=== PATIENT | male | born 1990 | race Caucasian/White ===

== ENCOUNTER 2020-01-12 12:25 | Day surgery (SDC) | payer OTHER ==
[2020-01-12] MEDS ORDERED: MORPHINE 4 MG/ML SYR ONE (13:23)
[2020-01-12] MEDS ORDERED: ONDANSETRON 4 MG/2 ML VIAL ONE ×2 (13:24→17:48)
[2020-01-12] MEDS ORDERED: CEFAZOLIN/SWI 1gm 1 GM/10 ML SYR ONE (13:24)
[2020-01-12] MEDS ORDERED: NA CHLORIDE 0.9% 1,000 ML ONE (13:24)
--- NOTE | 2020-01-12 13:34 | RAD REPORT ---
EXAM DESCRIPTION: RAD - Tib Fib Left - 01/12/2020 1:27 pm CLINICAL HISTORY: laceration Pain and swelling COMPARISON: No comparisons FINDINGS: Soft tissue laceration is seen medial calf. No radiopaque foreign body evident. No fractur e or dislocation.
--- NOTE | 2020-01-12 13:41 | EDPHYS ---
Physician Documentation [facility] Name: Charles Arambula Age: 29 yrs Sex: Male : 1990 Arrival Date: 01/12/2020 Time: 12:26 Bed 19 Private MD: ED Physician Chandler Owen HPI: 01/11 13:41 This 29 yrs old Male presents to ER via Wheelchair with complaints of snw Laceration To Leg. 13:30 The patient has a laceration related to: setting up table and middle support piece snw stabbed pt's leg occurred outdoors. The laceration(s) is(are) located on the medial aspect of left calf. Onset: The symptoms/episode began/occurred suddenly, just prior to arrival. Associated signs and symptoms: The patient has no apparent associated signs or symptoms. The patient has not experienced similar symptoms in the past. The patient has not recently seen a physician. tetanus up to date. Historical: - Allergies: 12:56 No Known Allergies; iw - Home Meds: 12:56 montelukast 10 mg oral tab 1 tab once daily [Active]; Albuterol Inhl [Active]; Zyrtec iw 10 mg Oral chew 1 tab once daily [Active]; - PMHx: 12:56 Asthma; iw ROS: 13:29 Constitutional: Negative for fever, chills, and weight loss, Eyes: Negative for injury, snw pain, redness, and discharge, ENT: Negative for injury, pain, and discharge, Neck: Negative for injury, pain, and swelling, Cardiovascular: Negative for chest pain, palpitations, and edema, Respiratory: Negative for shortness of breath, cough, wheezing, and pleuritic chest pain, Abdomen/GI: Negative for abdominal pain, nausea, vomiting, diarrhea, and constipation, Back: Negative for injury and pain, : Negative for injury, bleeding, discharge, and swelling, MS/Extremity: Negative for injury and deformity, Skin: Negative for injury, rash, and discoloration, + large laceration to left medial calf Neuro: Negative for headache, weakness, numbness, tingling, and seizure, Psych: Negative for depression, anxiety, suicide ideation, homicidal ideation, and hallucinations. Exam: 13:28 Constitutional: This is a well developed, well nourished patient who is awake, alert, snw and in no acute distress. Head/Face: Normocephalic, atraumatic. Eyes: Pupils equal round and reactive to light, extra-ocular motions intact. Lids and lashes normal. Conjunctiva and sclera are non-icteric and not injected. Cornea within normal limits. Periorbital areas with no swelling, redness, or edema. ENT: Nares patent. No nasal discharge, no septal abnormalities noted. Tympanic membranes are normal and external auditory canals are clear. Oropharynx with no redness, swelling, or masses, exudates, or evidence of obstruction, uvula midline. Mucous membranes moist. Neck: Trachea midline, no thyromegaly or masses palpated, and no cervical lymphadenopathy. Supple, full range of motion without nuchal rigidity, or vertebral point tenderness. No Meningismus. Chest/axilla: Normal chest wall appearance and motion. Nontender with no deformity. No lesions are appreciated. Cardiovascular: Regular rate and rhythm with a normal S1 and S2. No gallops, murmurs, or rubs. Normal PMI, no JVD. No pulse deficits. Respiratory: Lungs have equal breath sounds bilaterally, clear to auscultation and percussion. No rales, rhonchi or wheezes noted. No increased work of breathing, no retractions or nasal flaring. Abdomen/GI: Soft, non-tender, with normal bowel sounds. No distension or tympany. No guarding or rebound. No evidence of tenderness throughout. Back: No spinal tenderness. No costovertebral tenderness. Full range of motion. Neuro: Awake and alert, GCS 15, oriented to person, place, time, and situation. Cranial nerves II-XII grossly intact. Motor strength 5/5 in all extremities. Sensory grossly intact. Cerebellar exam normal. Normal gait. Psych: Awake, alert, with orientation to person, place and time. Behavior, mood, and affect are within normal limits. 13:28 Skin: Appearance: normal except for affected area, injury, laceration(s), the wound is approximately 6 cm(s), with a depth of 4 cm(s), of the medial aspect of left calf, muscle belly extrudes from laceration, + subcutaneous fat cut away with the skin, pain upon dorsiflexion. 14:04 ECG was reviewed by the Attending Physician. [facility] Vital Signs: 12:52 BP 122 / 84; Pulse 75; Resp 16; Temp 98.0; Pulse Ox 100% on R/A; Weight 77.11 kg; iw Height 6 ft. (182.88 cm); Pain 10/10; 13:33 BP 139 / 73; Pulse 78; Resp 17; Pulse Ox 100% ; rb1 15:16 BP 135 / 71; Pulse 68; Resp 16; Pulse Ox 100% ; rb1 12:52 Body Mass Index 23.06 (77.11 kg, 182.88 cm) iw Laceration: 13:32 Wound Repair of 6cm ( 2.4in ) muscle penetrating laceration to medial aspect of left snw calf. Irregularly shaped.. Hemostasis noted.. Distal neuro/vascular/tendon intact. Anesthesia: Wound infiltrated with 5 mls of 1% lidocaine, Local anesthetic administered with 5 mls of 0.5% marcaine. Wound prep: Wound explored minimally. Dressed with moist to dry with Kerlix. Patient tolerated well. MDM: 12:51 Patient medically screened. [facility] 13:26 Data reviewed: vital signs, nurses notes. Counseling: I had a detailed discussion with snw the patient and/or guardian regarding: the historical points, exam findings, and any diagnostic results supporting the discharge/admit diagnosis, radiology results. Physician consultation: Mehdi Nuñez MD was called at 13:15, was contacted at 13:15, regarding consult, patient's condition, Dr. Owen discussed with Dr. Nuñez, decision to take pt to OR for wash out and closure at 2:30, and will see patient shortly. 01/11 13:37 Order name: CBC with Diff [facility] 01/11 13:37 Order name: Comprehensive Metabolic Panel [facility] 01/11 12:57 Order name: XRAY Tib Fib LEFT; Complete Time: 13:36 01/11 13:37 Order name: CBC with Automated Diff; Complete Time: 15:09 [facility] 01/11 13:37 Order name: Comprehensive Metabolic Panel; Complete Time: 14:17 [facility] 01/11 14:03 Order name: CBC Smear Scan; Complete Time: 15:09 [facility] 01/11 13:37 Order name: Chest Single View XRAY; Complete Time: 14:17 [facility] 01/11 12:57 Order name: IV Start; Complete Time: 12:59 01/11 13:18 Order name: NPO; Complete Time: 13:33 [facility] 01/11 13:26 Order name: Dressing - Wound; Complete Time: 13:33 snw 01/11 13:37 Order name: EKG; Complete Time: 13:38 elsa 01/11 13:37 Order name: EKG - Nurse/Tech; Complete Time: 14:03 elsa EC:04 Rate is 70 beats/min. Rhythm is regular. QRS [place] is Normal. [place] interval is normal. QRS elsa interval is normal. QT interval is normal. No Q waves. T waves are Normal. No ST changes noted. Clinical impression: Normal ECG and No evidence of ischemia. Interpreted by me. Reviewed by me. Administered Medications: 13:00 Drug: Marcaine (0.5 %) 5 ml Volume: 10 ml; Route: Infiltration; rb1 13:17 Drug: NS 0.9% 1000 ml Route: IV; Rate: 1000 ml; Site: right antecubital; iw 13:18 Drug: morphine 4 mg Route: IVP; Site: right antecubital; iw 14:00 Follow up: Response: No adverse reaction; Pain is decreased iw 13:18 Drug: Zofran (Ondansetron) 4 mg Route: IVP; Site: right antecubital; iw 14:00 Follow up: Response: No adverse reaction iw 13:18 Not Given (UTD): Tetanus-Diphtheria Toxoid Adult 0.5 ml IM once snw 13:20 Drug: Ancef 1 grams Route: IVPB; Site: right antecubital; iw 13:33 Not Given (Duplicate Order): NS 0.9% 1000 ml IV at 1 bolus Per protocol; 1000 mL bolus rb1 15:10 Drug: NS 0.9% 1000 ml Route: IV; Rate: 125 ml/hr; Site: right antecubital; rb1 15:40 Follow up: IV Status: Infusion continued upon admission iw 15:10 Drug: morphine 2 mg Route: IVP; Site: right antecubital; rb1 15:30 Follow up: Response: No adverse reaction iw Disposition: 14:05 Co-signature as Attending Physician, Chandler Owen MD I agree with the assessment and elsa plan of care. Disposition: 01/12/20 13:41 Hospitalization ordered by Mehdi Nuñez for Observation. Preliminary diagnosis is Laceration without foreign body of lower leg. - Bed requested for Operating Room. - Status is Observation. eb - Condition is Stable. - Problem is new. - Symptoms are unchanged. Signatures: Dispatcher [employer] EDChandler Fitzpatrick MD MD cha Waters, Shelly, TUGBOAT DISPATCHER-C TUGBOAT DISPATCHER-Csnw Trena Oleary, JULY RN Asha Suarez, Kelsea Vallejo RN Corrections: (The following items were deleted from the chart) 13:30 13:28 Skin: Appearance: normal except for affected area, injury, laceration(s), the snw wound is approximately 6 cm(s), with a depth of 4 cm(s), of the medial aspect of left calf, muscle belly extrudes from laceration, + subcutaneous fat cut away with the skin, snw 15:30 13:41 Hospitalization Ordered by Mehdi Nuñez MD for Observation. Preliminary diagnosis eb is Laceration without foreign body of lower leg. Bed requested for Operating Room. Status is Observation. Condition is Stable. Problem is new. Symptoms are unchanged. snw
--- NOTE | 2020-01-12 13:41 | ER ---
Nurse's Notes [facility] Name: Charles Arambula Age: 29 yrs Sex: Male : 1990 Arrival Date: 01/12/2020 Time: 12:26 Bed 19 Private MD: Diagnosis: Laceration without foreign body of lower leg Presentation: 01/11 12:52 Chief complaint: Patient states: was putting together a metal table, then end of the iw table fell as they were lifting it, tore into his left calf, large avulsion/laceration noted, not bleeding at this time. Coronavirus screen: At this time, the client does not indicate any symptoms associated with coronavirus-19. Ebola Screen: Patient negative for fever greater than or equal to 101.5 degrees Fahrenheit, and additional compatible Ebola Virus Disease symptoms Patient denies exposure to infectious person. Patient denies travel to an Ebola-affected area in the 21 days before illness onset. No symptoms or risks identified at this time. Complicating Factors: There are no complicating factors for this patient. Initial Sepsis Screen: Does the patient meet any 2 criteria? No. Patient's initial sepsis screen is negative. Does the patient have a suspected source of infection? No. Patient's initial sepsis screen is negative. Risk Assessment: Do you want to hurt yourself or someone else? Patient reports no desire to harm self or others. Onset of symptoms was January 12, 2020. 12:52 Method Of Arrival: Wheelchair iw 12:52 Acuity: KIRSTEN 3 iw Historical: - Allergies: 12:56 No Known Allergies; iw - Home Meds: 12:56 montelukast 10 mg oral tab 1 tab once daily [Active]; Albuterol Inhl [Active]; Zyrtec iw 10 mg Oral chew 1 tab once daily [Active]; - PMHx: 12:56 Asthma; iw Screenin:40 Abuse screen: Denies threats or abuse. Nutritional screening: No deficits noted. rb1 Tuberculosis screening: No symptoms or risk factors identified. Fall Risk None identified. Assessment: 12:40 General: Appears in no apparent distress. Behavior is calm, cooperative. Pain: rb1 Complains of pain in medial aspect of left calf. Neuro: Level of Consciousness is awake, alert, obeys commands, Oriented to person, place, time, situation. Cardiovascular: Capillary refill < 3 seconds Patient's skin is warm and dry. Respiratory: Airway is patent Respiratory effort is even, unlabored, Respiratory pattern is regular, symmetrical. Musculoskeletal: Range of motion: intact in all extremities. Injury Description: Laceration sustained to medial aspect of left calf is contaminated, is bleeding a small amount. 13:38 Reassessment: Patient appears in no apparent distress at this time. Patient and/or rb1 family updated on plan of care and expected duration. Pain level reassessed. Patient is alert, oriented x 3, equal unlabored respirations, skin warm/dry/pink. 14:22 Reassessment: Patient appears in no apparent distress at this time. No changes from rb1 previously documented assessment. 15:00 Reassessment: Patient appears in no apparent distress at this time. Patient and/or rb1 family updated on plan of care and expected duration. Pain level reassessed. Patient is alert, oriented x 3, equal unlabored respirations, skin warm/dry/pink. Vital Signs: 12:52 BP 122 / 84; Pulse 75; Resp 16; Temp 98.0; Pulse Ox 100% on R/A; Weight 77.11 kg; iw Height 6 ft. (182.88 cm); Pain 10/10; 13:33 BP 139 / 73; Pulse 78; Resp 17; Pulse Ox 100% ; rb1 15:16 BP 135 / 71; Pulse 68; Resp 16; Pulse Ox 100% ; rb1 12:52 Body Mass Index 23.06 (77.11 kg, 182.88 cm) iw ED Course: 12:26 Patient arrived in ED. ds1 12:40 Patient has correct armband on for positive identification. Bed in low position. Call rb1 light in reach. Side rails up X 1. Pulse ox on. NIBP on. 12:51 Chandler Owen MD is Attending Physician. elsa 12:54 Triage completed. iw 12:54 Arm band placed on. iw 12:58 Inserted saline lock: 20 gauge in right antecubital area, using aseptic technique. iw 13:23 Trena Oleary, JULY is Primary Nurse. iw 13:27 XRAY Tib Fib LEFT In Process Unspecified. EDMS 13:35 Ewa Rosado FNP-C is PHCP. snw 13:40 Mehdi Nuñez MD is Hospitalizing Provider. snw 14:00 Chest Single View XRAY In Process Unspecified. EDMS Administered Medications: 13:00 Drug: Marcaine (0.5 %) 5 ml Volume: 10 ml; Route: Infiltration; rb1 13:17 Drug: NS 0.9% 1000 ml Route: IV; Rate: 1000 ml; Site: right antecubital; iw 13:18 Drug: morphine 4 mg Route: IVP; Site: right antecubital; iw 14:00 Follow up: Response: No adverse reaction; Pain is decreased iw 13:18 Drug: Zofran (Ondansetron) 4 mg Route: IVP; Site: right antecubital; iw 14:00 Follow up: Response: No adverse reaction iw 13:18 Not Given (UTD): Tetanus-Diphtheria Toxoid Adult 0.5 ml IM once snw 13:20 Drug: Ancef 1 grams Route: IVPB; Site: right antecubital; iw 13:33 Not Given (Duplicate Order): NS 0.9% 1000 ml IV at 1 bolus Per protocol; 1000 mL bolus rb1 15:10 Drug: NS 0.9% 1000 ml Route: IV; Rate: 125 ml/hr; Site: right antecubital; rb1 15:40 Follow up: IV Status: Infusion continued upon admission iw 15:10 Drug: morphine 2 mg Route: IVP; Site: right antecubital; rb1 15:30 Follow up: Response: No adverse reaction iw Outcome: 13:41 Decision to Hospitalize by Provider. snw 15:30 Patient left the ED. eb Signatures: Dispatcher [employer] EDMS Chandler Owen MD MD cha Waters, Shelly, BASIC COMBATANT SWIMMER-C BASIC COMBATANT SWIMMER-Shelley Winters ds1 Trena Oleary, JULY RN iw Asha Reyna, JULY RN rb1 Kelsea Oconnell eb
[2020-01-12 13:58] LABS: Absolute Lymphocytes (CBC) 0.7 K/uL (0.7-4.9); Basophils % 0.2 % (0-1.3); Hematocrit 41.4 % (39.6-49.0); Lymphocytes % 8.2 % (15.3-44.8); MPV 9.1 fL (7.6-11.3)
--- NOTE | 2020-01-12 14:12 | RAD REPORT ---
EXAM DESCRIPTION: RAD - Chest Single View - 01/12/2020 2:00 pm CLINICAL HISTORY: pre op Chest pain. COMPARISON: No comparisons FINDINGS: Portable technique limits examination quality. The lungs are grossly clear. The heart is normal in size. No displaced fractures. IMPRESSION: No acute intrathoracic process suspected.
[2020-01-12 14:15] LABS: ALT/SGPT 28 U/L (12-78); AST/SGOT 16 U/L (15-37); Albumin 4.4 g/dL (3.4-5.0); Alkaline Phosphatase 63 U/L (45-117); BUN Blood Urea Nitrogen 17 mg/dL (7-18); Bicarbonate 28 mmol/L (21-32); Bilirubin Total 0.6 mg/dL (0.2-1.0); Glucose Level 99 mg/dL (74-106); Potassium 4.1 mmol/L (3.5-5.1); Protein, Total 7.5 g/dL (6.4-8.2); Sodium Level 142 mmol/L (136-145)
[2020-01-12 15:03] LABS: Platelet Estimate ADEQ
[2020-01-12 15:04] LABS: Blood Morphology Comment NOT SEEN (NOT SEEN)
[2020-01-12] MEDS ORDERED: MORPHINE 2 MG/ML SYR ONE (15:14)
[2020-01-12] MEDS ORDERED: SUCCINYLCHOLINE 20 MG/ML (10 ML) IV ONE (15:51)
[2020-01-12] MEDS ORDERED: FENTANYL CITR 100 MCG/2 ML ONE ×2 (15:53→16:20)
[2020-01-12] MEDS ORDERED: propofoL 200 MG/20 ML VIAL IV ONE (15:53)
[2020-01-12] MEDS ORDERED: MIDAZOLAM HCL 2 MG/2 ML INJ ONE (15:53)
[2020-01-12] MEDS ORDERED: ROCURONIUM 50 MG/5 ML VIAL IV ONE (15:53)
[2020-01-12] MEDS ORDERED: GLYCOPYRROLATE 0.2 MG/ML SYR ONE (16:27)
[2020-01-12] MEDS ORDERED: NEOSTIGMINE 1 MG/ML -5 ML ONE (16:27)
[2020-01-12] MEDS ORDERED: Mastisol Adhesive Liq ONE (16:36)
[2020-01-12] MEDS ORDERED: HYDROCODONE/APAP 7.5/325 MG TAB ONE (17:02)
[2020-01-12] MEDS: FENTANYL CITR 100 MCG/2 ML ONE ×4 (17:24→17:40)
[2020-01-12 17:26] VITALS: TEMP 97
[2020-01-12 17:38] VITALS: BP 124/75; O2SAT 99
--- NOTE | 2020-01-12 19:34 | PREOPHP ---
Date of Admission: 01/12/2020 Chief Complaint: Laceration of left calf. History Of Present Illness: Patient is a 29-year-old gentleman who was pulling a wooden and metal ta ble together and had an accident with the metal part fell and sliced the back of his left calf, came to the emergency room, was evaluated, and there was no active bleeding. A complete workup with x-ray done. There is no foreign body or fracture noted, however the wound was fairly deep and involving i nto the muscle. Therefore, the patient needs irrigation and closure of a complex laceration and I wa s notified. He is awake, alert, no complaint. Bowels are stable. He is afebrile. Complaining of s ome pain. No neurovascular deficit noted on the initial evaluation in the emergency room. No sore t hroat, runny nose, cough, headaches, or dizziness. No chest pain. No fever or chills. Review of Systems: Otherwise unremarkable. Past Medical History: Significant for asthma. Past Surgical History: Negative. Allergies: NO ALLERGIES. Social History: He does not smoke. Drinks occasionally. Family History: Significant for hypertension and cancer. Physical Examination: Vital Signs: His vitals are stable. He is afebrile. General: He is awake, alert, and oriented x3. Head and Neck: Cranial nerves 2 through 12 are grossly within normal limits. No neck masses. No JV D. Throat clear. Neck is supple. Chest: Clear. Heart: S1, S2. Abdomen: Soft. Extremities: Neurovascularly intact. Full range of motion of the foot. Palpable dorsalis pedis and posterior tibial pulses. No neurological deficit is identified. Motor function is excellent. On t he left medial calf, there is approximately an 8 x 4 cm open wound with subcutaneous tissue bulging t hrough and muscle fibers being cut as well. It was fairly deep. There was some debris in the wound. Laboratory Data: Laboratory data reviewed. X-ray reviewed. No evidence of foreign body or fracture s noted. Assessment: Complex laceration, left posterior calf. Recommendations: Admit, n.p.o., IV fluid, IV antibiotics, tetanus up to date. To the OR for irrigat ion, debridement, and closure of the complex left calf laceration. Patient and family understands th e risks, benefits, and alternatives and agreed to procedure. /MODL Voice ID: [id number]
--- NOTE | 2020-01-13 01:26 | OP ---
Date of Procedure: 01/12/2020 Surgeon: Mehdi Nuñez MD Exchange Teller: MARIANELA Toro. Preoperative Diagnosis: Complex laceration, left calf. Postoperative Diagnosis: Complex laceration, left calf. Procedure: Irrigation, debridement, and closure of left calf complex laceration, 8 x 3 cm, layered i n fashion. Estimated Blood Loss: Minimal. Specimens: Debridement tissue. Findings: As above. Anesthesia: General. Complications: None. The patient tolerated the procedure in stable condition, taken to Recovery in good general condition. Procedure In Detail: The patient was brought to the OR and placed in supine position. General anest hesia begun. Then, the patient was placed in left lateral position, prepped and draped in the usual sterile fashion, and then Marcaine 0.5% was infiltrated locally. The wound edges were bleeding, that were controlled with cautery easily and some of the deep subcutaneous tissue was bleeding, that was also debrided, which was free, loose in the wound, and then there was muscle laceration. There was s ome oozing of blood there, that was controlled with cautery and then wound edges were jagged and so t hey had to be debrided all the way around and after the debridement approximately 8 x 3 cm, wound rem ained open. Wound was pulse irrigated with saline. There was no gross debris seen. There was some hair in the wound, which was removed and then the fascia of the muscle was closed with [id number] t 3-0 Vicryl and this closure was approximately 6 cm in length. Then, subcutaneous wounds were irrig ated, bleeding controlled with cautery, and then Nemo drain 0.25-inch placed and secured with 3-0 nylon and then 2-0 chromic and 3-0 chromic used to approximate the subcutaneous tissue and close the skin. Sterile dressing was applied. The patient was awakened and taken to Recovery in good general condition. Discharge Note: The patient will go to Day Surgery and home when stable. Disposition: Home. Condition: Stable. Discharge Instructions: Resume home medications and diet. Activity as tolerated. No heavy lifting. Keep dressing clean and dry. May shower with a plastic bag over the dressing. Crutches. Weightbe aring as tolerated. Tylenol No. 3 one tablet p.o. q.4 p.r.n. pain. Keflex 500 mg p.o. q.6. Followu p in my office in 10 days. Call for appointment. MAYO/JAELYN Voice ID: [id number] Report ID: [id number]
--- NOTE | 2020-01-15 05:23 | EKG ---
Test Date: 2020-01-12 Test Time: 13:55:39 Toolmaker Grade Three: JUDI MEASUREMENT RESULTS: Intervals: Rate: 70 IN: 120 QRSD: 94 QT: 388 QTc: 419 [place]: P: 55 IN: 120 QRS: 87 T: 70 INTERPRETIVE STATEMENTS: Normal sinus rhythm Normal ECG No previous ECG available for comparison Electronically Signed On 01-15-20 05:20:45 CDT by Dominic Reyes
[2020-01-16 14:54] LABS: White Blood Cell Scan OK (OK)
== END 2020-01-12 18:00 | disposition home or self-care (01) ==
LOC: ER 12:25 → DS 14:35
PROVIDERS: ATTEND Surgery
PROC: 0KQT0ZZ Repair Left Lower Leg Muscle, Open Approach (ICD-10-PCS; principal; 2020-01-12 15:00)
DX: S81.812A Laceration without foreign body, left lower leg, initial encounter (principal); S86.122A Laceration of other muscle(s) and tendon(s) of posterior muscle group at lower leg level, left leg, initial encounter; W26.8XXA Contact with other sharp object(s), not elsewhere classified, initial encounter; J45.909 Unspecified asthma, uncomplicated; Z79.899 Other long term (current) drug therapy
CPT/HCPCS: 93005; 85025; 36415; 88304; 80053; 71045; 73590; 96375; 96374; 99284; 13121; J2704; J0330; J2250; J3010 ×3; J2270; J2710; J0690; J7030; J2405 ×2